=== PATIENT | female | born 2000 | race Caucasian/White ===

== ENCOUNTER → 2023-04-12 | Outpatient (CLI) | payer OTHER | LOC: M CARPUL 10:41 | PROVIDERS: ATTEND Family Medicine | DX: J45.909 Unspecified asthma, uncomplicated (principal) ==

== ENCOUNTER → 2023-10-08 | Outpatient (CLI) | payer OTHER ==
[2023-10-08 14:04] LABS: HEMATOCRIT 35.8 % (36.0-47.0); HEMOGLOBIN 11.6 g/dl (12.0-15.5); MEAN CORPUSCULAR HEMOGLOBIN 29.1 pg (27.0-33.0); MEAN CORPUSCULAR HGB CONC 32.4 g/dl (32.0-36.5); MEAN CORPUSCULAR VOLUME 89.7 fl (80.0-96.0); PLATELET COUNT, AUTOMATED 323 10^3/uL (150-450); RED BLOOD COUNT 3.99 10^6/uL (4.00-5.40); WHITE BLOOD COUNT 16.6 10^3/uL (4.0-10.0)
[2023-10-08 15:16] LABS: GC DNA AMPLIFICATION NEGATIVE (NEGATIVE)
== END ==
LOC: M PLALAB 10:07
PROVIDERS: ATTEND Specialist
DX: Z34.92 Encounter for supervision of normal pregnancy, unspecified, second trimester (principal)

== ENCOUNTER → 2023-12-07 | Outpatient (REF) | payer OTHER ==
[~2023-12-07] MED LIST: ACET-683 PO; COLA100C5 PO; IBUP-1022 PO; PRENTAB9 PO
== END ==
LOC: M SFHCWAGY 09:24
PROVIDERS: ATTEND Specialist
DX: Z34.03 Encounter for supervision of normal first pregnancy, third trimester (principal)

== ENCOUNTER 2023-12-08 09:36 | Inpatient (IN) | payer OTHER ==
[~2023-12-08] VITALS: Ht 154.9 cm; Wt 73.0 kg
[2023-12-08] VITALS (38 sets, daily range): BP systolic 107–156; BP diastolic 55–88
[2023-12-08] MEDS ORDERED: PRENTAB9 PO (09:47)
[2023-12-08] MEDS ORDERED: HOME MED LIST COMPLETE! XX SCH (09:50)
[2023-12-08] MEDS ORDERED: OXYTOCIN INJ 10UNITS/ML 1ML VIAL IM PRN (10:35)
[2023-12-08] MEDS ORDERED: OXYTOCIN DRIP 30 UNITS in IV 1 EA IV PRN (10:35)
[2023-12-08] MEDS ORDERED: METHYLERGONOVINE MALEATE 0.2MG/ML 1ML VIAL IM PRN (10:35)
[2023-12-08] MEDS ORDERED: TRANEXAMIC ACID INJection 1,000 MG in NS 100 ML IV PRN (10:35)
[2023-12-08] MEDS ORDERED: CARBOPROST TROMETHAMINE 250 MCG/ML AMP IM PRN (10:35)
[2023-12-08] MEDS ORDERED: LIDOCAINE 1% MDV 20ML VIAL INFIL PRN (10:35)
[2023-12-08] MEDS: BETAMETHASONE SOLUSPAN 6MG/ML 5ML VIAL IM SCH (11:10)
[2023-12-08] MEDS: LR 1,000 ML IV SCH (11:45)
[2023-12-08] MEDS: PENICILLIN G POTASSIUM 5 MU IV 5 MU in D5W MINI-BAG PLUS 100 ML IV STA (11:45)
[2023-12-08] MEDS: LACTATED RINGER'S 1000 ML IV STA (11:45)
[2023-12-08 11:56] LABS: HEMATOCRIT 37.1 % (36.0-47.0); HEMOGLOBIN 12.6 g/dl (12.0-15.5); MEAN CORPUSCULAR HEMOGLOBIN 29.4 pg (27.0-33.0); MEAN CORPUSCULAR VOLUME 86.5 fl (80.0-96.0); PLATELET COUNT, AUTOMATED 301 10^3/uL (150-450); RED BLOOD COUNT 4.29 10^6/uL (4.00-5.40); WHITE BLOOD COUNT 20.4 10^3/uL (4.0-10.0)
[2023-12-08] MEDS: OXYTOCIN DRIP 30 UNITS in IV 1 EA IV SCH ×2 (12:52→22:05)
[2023-12-08 13:00] LABS: HEPATITIS C VIRUS ABY INDEX < 0.02 INDEX (<0.8)
[2023-12-08] MEDS: PEN G POT 3,000,000 UNIT/50 ML 3,000,000 UNIT in IV 1 EA IV SCH (15:55)
[2023-12-08] MEDS ORDERED: diphenhydrAMINE 50MG/ML VIAL IV PRN (17:35)
[2023-12-08] MEDS ORDERED: ONDANSETRON 4MG 2ML VIAL IV PRN (17:35)
[2023-12-08] MEDS ORDERED: FENTANYL 2MCG/ML ROPIVACAINE 0.2% IN 0.9% NACL 100ML IVBAG As Ordered ONE (17:35)
[2023-12-08] MEDS ORDERED: NALOXONE INJ 0.4MG/1ML VIAL IV PRN (17:35)
[2023-12-08] MEDS ORDERED: EPIDURAL/PCA KEYS XX PRN (17:35)
[2023-12-08] MEDS ORDERED: ePHEDrine SULFATE 25 MG/5 ML(5MG/ML) SYRINGE IVP PRN (17:35)
[2023-12-08] MEDS ORDERED: LR 500 ML IV PRN (17:35)
[2023-12-08] MEDS: FENTANYL/ROPIVACAINE/NACL BAG 100 ML EPIDURAL SCH (18:19)
[2023-12-08] MEDS ORDERED: RHO(D) IMMUNE GLOBULIN/MALTOSE 500MCG(2500IU)/2.2ML VIAL (WINRHO) IM SCH (22:05)
[2023-12-08] MEDS ORDERED: IBUPROFEN 600MG TAB PO PRN (22:05)
[2023-12-08] MEDS ORDERED: ACETAMINOPHEN TAB 650MG DOSE (2X325MG) PO PRN (22:05)
[2023-12-08] MEDS ORDERED: METHYLERGONOVINE MALEATE 0.2 MG TAB PO PRN (22:05)
[2023-12-09 00:14] VITALS: BP 112/59; O2SAT 97
[2023-12-09] MEDS: DIBUCAINE 1% OINTMENT 30GM TOP PRN (01:19)
[2023-12-09] MEDS: IBUPROFEN 800 MG TAB PO PRN (01:19)
[2023-12-09] MEDS: ACETAMINOPHEN 500 MG TAB PO PRN (04:10)
[2023-12-09 06:00] VITALS: BP 106/56; O2SAT 99
[2023-12-09] MEDS: PRENATAL VITAMINS CHEWABLE TABLET PO SCH (09:19)
[2023-12-09] MEDS: DOCUSATE SODIUM 100MG CAPSULE PO PRN (09:23)
[2023-12-09 18:00] VITALS: BP 115/59; O2SAT 96
[2023-12-09] MEDS: ANUSOL HC CREAM 30GM TOP PRN (23:52)
[2023-12-10 05:58] VITALS: BP 98/55; O2SAT 96
[2023-12-10] MEDS: MEASLES,MUMPS,RUBELLA VACCINE INJ (MMR-II) SC.IMMUN ONE (07:30)
[2023-12-10] MEDS ORDERED: IBUP-1022 PO (09:59)
[2023-12-10] MEDS ORDERED: ACET-683 PO (09:59)
[2023-12-10] MEDS ORDERED: COLA100C5 PO (09:59)
== END 2023-12-10 13:17 | disposition home or self-care (01) | DRG 807 ==
LOC: M LDO 09:36 → M LDI 10:45 → M OBS 12-09 00:01
PROVIDERS: ADMIT Advanced Practice Midwife; ATTEND Advanced Practice Midwife
PROC: 10E0XZZ Delivery of Products of Conception, External Approach (ICD-10-PCS; principal; 2023-12-08)
DX: O42.02 Full-term premature rupture of membranes, onset of labor within 24 hours of rupture (principal); Z37.0 Single live birth; Z3A.36 36 weeks gestation of pregnancy